=== PATIENT | female | born 1945 | race Caucasian/White ===

== ENCOUNTER 2018-08-04 17:42 | Emergency (ER) | payer MEDICARE, OTHER ==
[~2018-08-04] VITALS: Ht 165.1 cm; Wt 108.9 kg
[2018-08-04 17:50] VITALS: BP 161/58
[2018-08-04] MEDS ORDERED: diphenhdrAMINE HCL 50 MG/1 ML VL ONE (17:53)
[2018-08-04] MEDS ORDERED: diphenhdrAMINE HCL 50 MG/1 ML VL IV ONE (18:00)
== END 2018-08-04 20:37 | disposition left against medical advice (07) ==
LOC: ER 17:44
DX: R21 Rash and other nonspecific skin eruption (principal); Z53.21 Procedure and treatment not carried out due to patient leaving prior to being seen by health care provider